=== PATIENT | female | born 1930 | race Caucasian/White ===

== ENCOUNTER 2020-10-30 12:25 | Inpatient (IN) ==
[2020-10-30] MEDS ORDERED: *HR* FentaNYL (PF) 100 MCG/2 ML VIAL IVP ONE ×2 (12:36→12:38)
[2020-10-30] MEDS ORDERED: Ondansetron 4 MG/2 ML VIAL IVP ONE ×2 (12:36→12:38)
[2020-10-30] MEDS ORDERED: Morphine Sulfate 2 MG/ML SYRINGE IVP ONE (13:30)
[2020-10-30 14:10] LABS: Hematocrit 36.3 % (35.3-44.9); Red Cell Distribution Width 13.9 % (11.5-14.5)
[2020-10-30 14:12] LABS: Basophils % 0.4 %; Eosinophils % 0.2 %; Hemoglobin 12.2 g/dL (11.5-15.4); Immature Granulocytes % 1.1 % (0-4); Lymphocytes # 0.8 K/mcL (0.6-4.6); Lymphocytes % 15.1 %; Mean Corpuscular HGB Conc 33.6 g/dL (31.6-35.5); Mean Corpuscular Hemoglobin 29.4 pg (28.0-33.3); Mean Corpuscular Volume 87.5 fL (83.0-100.0); Monocytes # 0.5 K/mcL (0.0-1.3); Monocytes % 9.2 %; Red Blood Count 4.15 M/mcL (3.82-4.97); White Blood Count 5.4 K/mcL (4.3-11.1)
[2020-10-30 14:20] LABS: INR 1.1; Prothrombin Time 12.9 Seconds (9.4-12.1)
[2020-10-30 14:27] LABS: BUN/Creatinine Ratio 18 (6-26); Blood Urea Nitrogen 16 mg/dL (8-23); Calcium 9.8 mg/dL (8.6-10.3); Carbon Dioxide 26 mEq/L (23-29); Chloride 102 mEq/L (98-107); Glucose 192 mg/dL (70-105); Osmolality,Calculated 286 (280-300); Potassium 4.2 mEq/L (3.5-5.1); Sodium 135 mEq/L (136-145); eGFR For African Americans > 60 (> 60); eGFR For Non-African Americans > 60 (> 60)
[2020-10-30 14:48] LABS: Platelet Count 62 K/mcL (140-400)
[2020-10-30 14:49] LABS: Platelet Estimate Decreased (Normal)
[2020-10-30] MEDS ORDERED: Lidocaine/EPI 1:200k 1% PF 10 ML VIAL ONE (15:28)
[2020-10-30 15:50] LABS: Alanine Aminotransferase 10 Units/L (7-52); Albumin 4.5 g/dL (3.5-5.7); Alkaline Phosphatase 60 Units/L (34-104); Aspartate Amino Transferase 12 Units/L (13-39); Bilirubin,Direct 0.1 mg/dL (0.0-0.2); Bilirubin,Indirect 0.4 mg/dL (0.0-1.0); Bilirubin,Total 0.5 mg/dL (0.3-1.0); Globulin 2.3 g/dL (2.4-3.5); Total Protein 6.8 g/dL (6.4-8.9)
[2020-10-30] MEDS ORDERED: Naloxone 0.4 MG/ML INJ IVP PRN ×2 (16:56→21:06)
[2020-10-30] MEDS ORDERED: Ondansetron 4 MG/2 ML VIAL IVP PRN ×4 (16:56→21:06)
[2020-10-30] MEDS ORDERED: Acetaminophen 325 MG TABLET PO PRN ×2 (16:56→21:06)
[2020-10-30] MEDS ORDERED: *HR* OxyCODONE Immed Rel 5 MG TABLET PO PRN ×2 (18:15→21:06)
[2020-10-30] MEDS ORDERED: Ringers Solution, Lactated 1,000 ML IVC SCH ×2 (18:15→21:06)
[2020-10-30] MEDS ORDERED: *HR* Propofol 200 MG/20 ML VIAL IVP ONE (18:20)
[2020-10-30] MEDS ORDERED: *HR* FentaNYL (PF) 100 MCG/2 ML VIAL ONE (18:20)
[2020-10-30] MEDS ORDERED: Lidocaine -MPF 2% 2 ML VIAL ONE (18:37)
[2020-10-30] MEDS ORDERED: EPHEDrine 50 MG/ML VIAL ONE (18:38)
[2020-10-30] MEDS ORDERED: *HR* FentaNYL (PF) 100 MCG/2 ML VIAL IVP PRN (19:50)
[2020-10-30] MEDS: *HR* HYDROmorphone PF 0.5 MG/0.5 ML SYRINGE IVP PRN ×2 (19:50→19:55)
[2020-10-30] MEDS ORDERED: *HR* HYDROmorphone PF 0.5 MG/0.5 ML SYRINGE IVP PRN (21:06)
[2020-10-30] MEDS: Benzonatate 100 MG CAPSULE PO PRN (22:12)
[2020-10-30] MEDS ORDERED: Ipratropium/Albuterol Neb 3 ML ONE (22:36)
[2020-10-31] MEDS: ceFAZolin 2,000 MG in 0.9 % Sodium Chloride 100 ML IVPB SCH ×2 (00:38→09:00)
[2020-10-31 01:45] LABS: Hematocrit 34.3 % (35.3-44.9); Hemoglobin 11.4 g/dL (11.5-15.4); Mean Corpuscular HGB Conc 33.2 g/dL (31.6-35.5); Mean Corpuscular Hemoglobin 30.1 pg (28.0-33.3); Mean Corpuscular Volume 90.5 fL (83.0-100.0); Mean Platelet Volume 12.5 fL (9.4-12.4); Red Blood Count 3.79 M/mcL (3.82-4.97); Red Cell Distribution Width 13.9 % (11.5-14.5)
[2020-10-31 01:46] LABS: Platelet Count 62 K/mcL (140-400)
[2020-10-31 02:11] LABS: BUN/Creatinine Ratio 17 (6-26); Blood Urea Nitrogen 15 mg/dL (8-23); Calcium 9.2 mg/dL (8.6-10.3); Carbon Dioxide 22 mEq/L (23-29); Chloride 100 mEq/L (98-107); Glucose 300 mg/dL (70-105); Magnesium 1.1 mg/dL (1.6-2.6); Osmolality,Calculated 288 (280-300); Potassium 4.1 mEq/L (3.5-5.1); Sodium 133 mEq/L (136-145); eGFR For African Americans > 60 (> 60); eGFR For Non-African Americans 60 (> 60)
[2020-10-31] MEDS: Benzonatate 100 MG CAPSULE PO PRN (09:06)
[2020-11-01] MEDS ORDERED: GI Cocktail 40 ML EACH PO ONE (05:43)
[2020-11-01] MEDS ORDERED: DilTIAZem CD (24hr) 180 MG CAP.ER.24H PO SCH (09:00)
[2020-11-01] MEDS ORDERED: Aspirin Enteric Coated 81 MG Tablet PO SCH (09:00)
[2020-11-01 11:00] VITALS: BP 123/68
== END 2020-11-01 11:10 ==
LOC: EMEROOARM 12:25 → 3NENU 12:25 → SUATTDRO 17:43 → MERGE 17:43
PROVIDERS: ADMIT Internal Medicine; ATTEND Pharmacist